=== PATIENT | female | born 1990 | race Caucasian/White ===

== ENCOUNTER 2017-04-27 14:17 | Emergency (ER) | payer MEDICAID, SELFPAY ==
[2017-04-27 14:18] VITALS: BP 157/91; PULSE 114; RESP 16; TEMP 36.6; O2SAT 99; BMI 41.3
--- NOTE | 2017-04-27 15:22 | ED.DCSUM_ITS ---
- ER Visit Summary Date of Service: 04/27/17 Chief Complaint: Nausea and vomiting History of Present Illness: The patient is a 26 F who presents with her daughter who has similar symptoms. The patient recently had a URI-like illness with congestion and cough. She was seen at an outside emergency department and diagnosed with an ear infection and is currently on azithromycin. She states she had nausea and one episode of nonbloody nonbilious emesis earlier today as well as some loose stools today. She has tolerated p.o. She states that she was able to eat rice crispy treats earlier and has had no further vomiting. She denies fever chest pain shortness of breath. She denies abdominal pain. Physical Examination: Heart rate 114 vitals otherwise unremarkable Moist mucous membranes Heart regular rhythm tachycardia Lungs are clear Abdomen soft nontender nondistended Alert Test Results: Not indicated Emergency Department Course and Treatment: She has a benign exam. She has no reproducible abdominal tenderness. She is well-appearing. She has tolerated p.o. Her daughter is ill with vomiting and diarrhea as well. I suspect this is related to a viral syndrome she was advised on oral rehydration and was given a Zofran ODT here. She was discharged. Treatment Plan: [] Disposition: Discharge Impression: Gastroenteritis This note was generated with Clinc! dictation software. It may contain incorrect words, spelling, and punctuation that were not noted in review of the chart prior to signing ED Disposition - Plan for ED Patient: Chief Complaint: Nausea/Vomiting/Diarrhea Referrals: Care Physician,No Primary [Primary Care Provider] -
--- NOTE | 2017-04-27 15:22 | ED.DEP ---
ED Disposition - Plan for ED Patient: Chief Complaint: Nausea/Vomiting/Diarrhea Instructions: ED Gastroenteritis Viral Referrals: Care Physician,No Primary [Primary Care Provider] -
[2017-04-27] MEDS: Ondansetron ODT 4 MG Tablet PO (15:23)
== END 2017-04-27 15:35 | disposition home or self-care (01) ==
PROVIDERS: Emergency Provider Emergency Medicine
DX: K52.9 Noninfective gastroenteritis and colitis, unspecified (principal); Z72.0 Tobacco use
CPT/HCPCS: 99283

== ENCOUNTER → 2017-06-07 11:47 | Outpatient (CLI) | payer MEDICAID, SELFPAY ==
[2017-06-07 12:17] LABS: Color, Urine Yellow (Yellow); Glucose, Dipstick Normal (Normal); Ketone-Dipstick 5 mg/dl (Negative); Leukocyte Esterase-Dipstick Negative /ul (Negative); Nitrite-Dipstick Negative (Negative); Occult Blood-Urine Negative /ul (Negative); Protein-Dipstick 15 mg/dl (Negative); Specific Gravity, Urine 1.025 (1.002-1.030); Urine Bilirubin Dipstick Negative (Negative); Urine Clarity Cloudy (Clear); Urine Urobilinogen 1 mg/dl (Normal)
[2017-06-07 12:36] LABS: Amphetamine Urine VISTA NEGATIVE (<1000 ng/mL); Barbiturate Urine VISTA NEGATIVE (< 200 ng/mL); Benzodiazepine Urine VISTA NEGATIVE (< 200 ng/mL); Cocaine Urine VISTA NEGATIVE (< 300 ng/mL); Ecstacy Urine VISTA NEGATIVE (< 500 ng/mL); Methadone Urine VISTA NEGATIVE (< 300 ng/mL); PCP Urine VISTA NEGATIVE (< 25 ng/mL); THC Urine VISTA POSITIVE (< 50 ng/mL); Vista UDS pH Range 5
[2017-06-07 13:00] LABS: Thyroid Stim Hormone (TSH) 0.82 uIU/mL (0.358-3.74)
[2017-06-07 13:01] LABS: Absolute Lymphocyte Count 2.01 X10^3/ul (0.83-4.51); Absolute Neutrophil Count 9.5 X10^3/uL (2.0-7.7); Basophil# 0.01 X10^3/uL; Basophil% 0.1 % (0-1); Eosinophils% 1.6 % (0-5); Hematocrit 27.3 % (37-47); Hemoglobin 8.4 g/dl (12.0-15.0); Lymphocyte # 2.01 X10^3/ul (4.0); Lymphocyte % 16.2 % (19-41); Mean Corp Hgb Conc 30.8 g/gl (32-36); Mean Corpuscular Hgb 22.1 pg (27.0-32.0); Mean Corpuscular Volume 71.8 fL (81-99); Monocyte# 0.63 X10^3/uL; Monocyte% 5.1 % (0-10); Neutrophil # 9.51 X10^3/uL (2.7-7.7); Neutrophil % 76.4 % (47-70); POSITIVE COUNT NO; POSITIVE DIFFERENTIAL NO; POSITIVE MORPHOLOGY YES; Platelet Count 110 K/mm3 (150-450); RBC Distribution Width CV 16.9 % (11.6-14.6); RBC Distribution Width SD 44.3 fl (35.1-43.9); White Blood Count 12.4 K/mm3 (4.4-11.0)
[2017-06-07 13:03] LABS: Differential Indicated SCAN CRITERIA MET
[2017-06-07 13:04] LABS: Platelet Estimate SLT DEC (ADEQ)
[2017-06-07 13:05] LABS: Hypochromasia 1+; Platelet Morphology GIANT
[2017-06-07 13:42] LABS: HIV - WCH Non-Reactive (Nonreactive); Rubella IgG 146.5 IU/mL
[2017-06-07 13:57] LABS: Group B Strep DNA By PCR Negative (Negative); Internal Control PASS; Probe Check PASS; Specimen Processing Control PASS
[2017-06-07 14:30] LABS: Chlamydia Trachomatis by PCR Negative (Negative); Neisserai gonorrhoeae by PCR Negative (Negative); Probe Check PASS; Sample Adequacy Control PASS; Specimen Processing Control PASS
[2017-06-09 11:38] LABS: HEPATITIS B SURFACE AG Negative (Negative); Hep C Antibodies <0.1 s/co ratio (0.0-0.9)
[2017-06-14 02:33] LABS: Prenatal RPR NONREACTIVE (NONREACTIVE)
== END ==
PROVIDERS: Visit Provider Obstetrics & Gynecology
DX: Z11.3 Encounter for screening for infections with a predominantly sexual mode of transmission (principal); Z34.82 Encounter for supervision of other normal pregnancy, second trimester
CPT/HCPCS: 36415; 80307; 81002; 84443; 85025; 86703; 86762; 86803; 87081; 87340; 87491; 87591; 87653

== ENCOUNTER → 2017-07-05 11:03 | Outpatient (CLI) | payer MEDICAID, SELFPAY ==
[2017-07-05 11:51] LABS: Amphetamine Urine VISTA NEGATIVE (<1000 ng/mL); Barbiturate Urine VISTA NEGATIVE (< 200 ng/mL); Benzodiazepine Urine VISTA NEGATIVE (< 200 ng/mL); Cocaine Urine VISTA NEGATIVE (< 300 ng/mL); Ecstacy Urine VISTA NEGATIVE (< 500 ng/mL); Methadone Urine VISTA NEGATIVE (< 300 ng/mL); PCP Urine VISTA NEGATIVE (< 25 ng/mL); THC Urine VISTA POSITIVE (< 50 ng/mL); Vista UDS pH Range 6
[2017-07-05 12:33] LABS: Group B Strep DNA By PCR Negative (Negative); Internal Control PASS; Probe Check PASS; Specimen Processing Control PASS
[2017-07-05 13:38] LABS: Glucose Challenge Gest 1H 50g 120 mg/dL (70-140)
[2017-07-05 14:18] LABS: Hematocrit 30.1 % (37-47); Hemoglobin 9.1 g/dl (12.0-15.0); Mean Corp Hgb Conc 30.2 g/gl (32-36); Mean Corpuscular Hgb 21.2 pg (27.0-32.0); Mean Corpuscular Volume 70.2 fL (81-99); Platelet Count 123 K/mm3 (150-450); RBC Distribution Width CV 17.6 % (11.6-14.6); RBC Distribution Width SD 44.9 fl (35.1-43.9); Red Blood Count 4.29 M/mm3 (4.2-5.4); White Blood Count 10.1 K/mm3 (4.4-11.0)
[2017-07-05 14:31] LABS: Scan Indicated on CBC? Y/N YES- FLAGS NOTED
== END ==
PROVIDERS: Visit Provider Obstetrics & Gynecology
DX: Z34.83 Encounter for supervision of other normal pregnancy, third trimester (principal); Z36.85 Encounter for antenatal screening for Streptococcus B
CPT/HCPCS: 36415; 80307; 82950; 85027; 87081; 87653

== ENCOUNTER 2017-07-08 10:00 | Inpatient (IN) | payer MEDICAID, SELFPAY ==
[2017-07-04 11:47] VITALS: BMI 40.8
[2017-07-08] VITALS (14 sets, daily range): BP systolic 115–146; BP diastolic 51–93; PULSE 80–88; RESP 16–18; TEMP 35.8–36.9; O2SAT 97–99; BMI 41.4
[2017-07-08] MEDS: Lactated Ringers 1,000 ML 999 ML IV (10:30)
[2017-07-08 11:01] LABS: International Normalized Ratio 0.9; Prothrombin Time (Protime)PT. 12.6 SECONDS (11.7-14.9)
[2017-07-08 11:02] LABS: Partial Thromboplast Time 27.5 Seconds (24.1-36.2)
[2017-07-08 11:15] LABS: Hematocrit 27.1 % (37-47); Hemoglobin 8.2 g/dl (12.0-15.0); Mean Corp Hgb Conc 30.3 g/gl (32-36); Mean Corpuscular Volume 69.5 fL (81-99); Platelet Count 129 K/mm3 (150-450); RBC Distribution Width CV 17.2 % (11.6-14.6); White Blood Count 11.2 K/mm3 (4.4-11.0)
[2017-07-08 11:16] LABS: Scan Indicated on CBC? Y/N YES- FLAGS NOTED
[2017-07-08] MEDS: Lactated Ringers 1,000 ML 150 ML IV (11:45)
[2017-07-08] MEDS: Sodium Citrate/Citric Acid 30 ML UDC PO (11:55)
[2017-07-08] MEDS: Oxytocin 30 units/NS 500 ml 30 UNITS/500 ML IV.SOLN 167 UNITS IV (12:47)
[2017-07-08] MEDS: Lactated Ringers 1,000 ML 100 ML IV (14:30)
--- NOTE | 2017-07-08 18:13 | OP.PCM_ITS ---
Operative Report Date of Procedure: 07/08/17 Surgeon: Berny Zambrano MD, FACOG Adjunct Instructor Of Women'S Studies: GLORY Renner Anesthesia: Guerda Paz CRNA Anesthesia: Spinal Pre-op Diagnosis: - -Prior Section, Desires Permanent Sterilization Post-Op Diagnosis: - -Prior Section, Desires Permanent Sterilization Procedure: Repeat Low Transverse Cervical Caesarean Section, Bilateral Tubal Occlusion with Filshie Clips Findings: Viable male with Apgars of 9/9 in occiput anterior presentation with clear amniotic fluid and normal three-vessel placenta. Indication: This is a 26-year-old who presents for her fourth at 39+ weeks gestation. care has otherwise been uneventful. The patient has been counseled regarding the risk and indications of this procedure including the possibility of bleeding infection and injury to surrounding structures such as bowel bladder. She also understands the permanent nature of her tubal, the failure rate of 1-2%, and the availability of other nonpermanent control options. All questions were answered. Procedure: Patient was taken to the operating room where after spinal anesthesia was placed, the patient was prepped and draped in usual sterile fashion and a See catheter was placed. The abdomen was entered through the patient's prior Pfannenstiel incision and peritoneum was entered bluntly. After developing a bladder flap on the lower uterine segment a low transverse incision was made on the uterus and head was easily delivered onto the operative field the nose mouth and oropharynx were bulb suctioned. Subsequently a viable male infant was born with Apgars of 9/9. The infant was noted to cry move all extremities vigorously on the operative field. The umbilical cord was doubly clamped and ligated and handed to the nursery personnel who were present for the delivery. Placenta was delivered and noted to be 3 vessels and normal. Uterus was exteriorized and remaining placental tissue was removed. The uterus was then closed in 2 layers first with running locked 0 Vicryl suture followed by a second imbricating layer with 0 Vicryl suture. 0 Vicryl suture was then used in a horizontal mattress interrupted fashion to affect final hemostasis of the uterine incision line. Normal fallopian tubes and ovaries were visualized and Filshie clips were placed approximately 1-2 cm from the uterine fundus on each fallopian tube. The uterus was returned to the pelvis. Hemostasis was noted and rectus abdominis muscles were reapproximated in the midline with interrupted Number 0 Vicryl suture in a horizontal mattress fashion. Fascia was closed with running Number 1 PDS Strata fix suture. Subcutaneous tissue was irrigated with copious amouts of saline solution and then closed with running 3-0 Vicryl suture. Skin was closed with 4-0 monocryl suture in a running subcuticular fashion. Steri strips , telfa, and tape were placed across the incision. The patient tolerated the procedure well and was taken to the recovery room in satisfactory condition. Sponge, needle, and instrument counts were all reportedly correct. EBL was less than 500 cc. Cefotan 2 gms IV was given prior to the procedure. Spicemen to Pathology: None Complications: None
--- NOTE | 2017-07-08 18:14 | DCINST_ITS ---
Discharge Diet: No Restrictions Discharge Activity: May not drive while taking narcotic pain medications., May Shower, May Take a Tub Bath May resume sexual activity in: 4-6 weeks Lifting Restrictions: 20 pounds Additional Activity Instructions:: Nothing in the vagina for 4-6 weeks. You may return to work/school in 6 weeks. Call your doctor if your incision/area has: Continuous Slow Oozing, Sudden Increased Bleeding, Increased Pain/ Swelling, Increased Redness, Foul Smelling Discharge Call your doctor if you observe: Fever of 101 or Higher, Inability to urinate, Inability to have a bowel movement, Using more than one pad per hour Additional Instructions: If you experience any of the following, contact your healthcare provider. * Bleeding that soaks a pad every hour for 2 hours * Unrelieved incision or abdominal pain * Swelling, redness, discharge or bleeding from your incision or episiotomy site * Your incision begins to separate * Problems urinating (including inability to urinate or burning while urinating) . * Visual changes * Severe headache * Flu-like symptoms * Pain or redness in one of both of your breasts * Pain, warmth, tenderness or swelling in your legs, especially the calf area * Frequent nausea and vomiting * Symptoms of depression or anxiety If you experience any of the following, call 911 or go to the nearest Emergency Room. * Chest pain * Problems breathing * Seizure activity * Partial or complete paralysis of a body part, slurred speech, weakness or drooping of the face, or a sudden inability to walk or hold your balance Allergies/Adverse Reactions: Allergies morphine Allergy (Verified 07/04/17 11:36) Hives Penicillins Allergy (Verified 07/04/17 11:36) Hives Medications to take at Discharge Vit Calc,Iron,Folic [ Vitamins] 1 each PO DAILY 07/04/17 Docusate Sodium [Colace] 100 mg PO BID PRN PRN #60 cap 07/08/17 Oxycodone [Oxyir] 5 mg PO Q6H PRN PRN 7 Days #14 tab 07/08/17 The following prescriptions were given: Oxycodone [Oxyir] 5 mg PO Q6H PRN PRN 7 Days #14 tab PRN Reason: Severe Pain (-12/18) Docusate Sodium [Colace] 100 mg PO BID PRN PRN #60 cap PRN Reason: Constipation Follow-Up: Call to make an appointment with your doctor for an incision check in 1-2 weeks. You will also need a 6 week post- follow up appointment. Please Follow Up With: Berny Zambrano MD - [phone] When: Call to make an appointment for an incision check in 2 weeks. Primary Care Physician: Care Physician,No Primary [Primary Care Provider] -
[2017-07-08] MEDS: Ketorolac 30 MG/ML Syringe IV (18:22)
[2017-07-08] MEDS: 0.9% Saline Lock 10 ML Syringe IV (18:23)
[2017-07-09] MEDS: Lactated Ringers 1,000 ML 100 ML IV (00:30)
[2017-07-09] MEDS: Ketorolac 30 MG/ML Syringe IV ×6 (00:33→23:53)
[2017-07-09 04:40] VITALS: BP 145/64; PULSE 78; RESP 18; TEMP 36.2
[2017-07-09 06:34] LABS: Hematocrit 23.4 % (37-47); Hemoglobin 7.1 g/dl (12.0-15.0); Mean Corp Hgb Conc 30.3 g/gl (32-36); Mean Corpuscular Hgb 21.1 pg (27.0-32.0); Mean Corpuscular Volume 69.6 fL (81-99); Platelet Count 121 K/mm3 (150-450); RBC Distribution Width CV 17.4 % (11.6-14.6); RBC Distribution Width SD 44.6 fl (35.1-43.9); Red Blood Count 3.36 M/mm3 (4.2-5.4); White Blood Count 13.3 K/mm3 (4.4-11.0)
[2017-07-09 06:49] LABS: Scan Indicated on CBC? Y/N YES- FLAGS NOTED
--- NOTE | 2017-07-09 07:07 | PCM.PN.OB ---
Subjective: Postoperative day #1 repeat Patient without complaints. Tolerating diet well. Denies any orthostatic changes. Positive flatus. - Physical Exam Vital Signs AF, VSS Temp Pulse Resp BP Pulse Ox 97.2 F L 78 18 145/64 H 98 07/09/17 04:40 07/09/17 04:40 07/09/17 04:40 07/09/17 04:40 07/08/17 23:50 Oxygen Delivery Method Room Air Weight: 264 lb 12.403 oz Body Mass Index (BMI) 41.4 Intake and Output for Last 24 Hours 07/07/17 07/08/17 07/09/17 23:59 23:59 23:59 Intake Total 2700 / 2700 2178 / 2178 Output Total 1450 / 1450 1600 / 1600 Balance 1250 / 1250 578 / 578 Laboratory Tests Past 24 Hrs 07/08/17 07/08/17 07/08/17 10:27 10:27 10:27 WBC 11.2 H RBC 3.90 L Hgb 8.2 L Hct 27.1 L MCV 69.5 L MCH 21.0 L MCHC 30.3 L RDW 17.2 H RDW Differential 44.0 H Plt Count 129 L Differential Comment COMMENT PT 12.6 INR 0.9 APTT 27.5 Blood Type O POSITIVE Antibody Screen NEGATIVE 07/09/17 06:03 WBC 13.3 H RBC 3.36 L Hgb 7.1 L Hct 23.4 L MCV 69.6 L MCH 21.1 L MCHC 30.3 L RDW 17.4 H RDW Differential 44.6 H Plt Count 121 L Differential Comment PT INR APTT Blood Type Antibody Screen Wound is clean, dry, intact. Good urine output. Hemoglobin stable. Medical Necessity - Tobacco Use Smoking Status: Current every day smoker Assessment/Plan Postoperative day #1 repeat Doing well. Continuing present care. Discussed need for taking iron at home.
[2017-07-09 07:23] LABS: Differential Comment SCANNED
[2017-07-09] MEDS: oxyCODONE 5 MG Tablet PO ×3 (09:44→21:27)
[2017-07-09 12:40] VITALS: BP 146/84; PULSE 96; RESP 18; TEMP 36.1; O2SAT 98
[2017-07-09] MEDS: 0.9% Saline Lock 10 ML Syringe IV ×3 (12:43→23:52)
[2017-07-09 13:21] VITALS: BP 144/63; PULSE 90; RESP 18; TEMP 36.3; O2SAT 99
--- NOTE | 2017-07-09 13:44 | CASEMGMT ---
Social Work Note Labor and Delivery Unit Verbal notification from nursing staff and from hash slinger regarding patient/mother of baby (MOB) having late care, as well as positive drug screens during . Chart reviewed and noted that baby's urine drug screen with positive results after delivery. Presented to MOB's room for social work consult/assessment. Nursing present in room, as well as a visitor just arriving to see MOB and baby. This information writer offered to come back tomorrow morning if this would be helpful. MOB cooperative and stated that whatever is better for this information writer, but that tomorrow morning only the father of baby (FOB) would be visiting, indicating that may be a better time to visit, though agreeable to whatever this information writer wishes to do. Due to nature of conversation, and in respect of visit that just started, this information writer made decision to follow up with MOB in the morning of 07-10-17. Plan: Will see MOB 07-10-17. MOB is aware and expressed agreement. -FLOR Neff, DEAN OF STUDENT SERVICES
[2017-07-09 15:49] VITALS: BP 156/78; PULSE 86; RESP 16; TEMP 36.3; O2SAT 96
--- NOTE | 2017-07-09 16:02 | NURSING ---
dominguez removed at 10:30
[2017-07-09 20:45] VITALS: BP 136/78; PULSE 94; RESP 18; TEMP 36.4; O2SAT 99
[2017-07-10 02:32] VITALS: BP 140/73; PULSE 89; RESP 16; TEMP 36.5; O2SAT 98
[2017-07-10] MEDS: Acetaminophen 500 MG Tablet 1000 MG PO (05:33)
[2017-07-10 07:35] VITALS: BP 135/80; PULSE 90; RESP 18; TEMP 35.9; O2SAT 98
--- NOTE | 2017-07-10 08:24 | PCM.PN.OB ---
Subjective: Patient without complaints. Positive flatus. Wants to go home but baby needs to stay for another day. - Physical Exam Vital Signs Temp Pulse Resp BP Pulse Ox 96.7 F L 90 18 135/80 H 98 07/10/17 07:35 07/10/17 07:35 07/10/17 07:35 07/10/17 07:35 07/10/17 07:35 Oxygen Delivery Method Room Air Weight: 264 lb 12.403 oz Body Mass Index (BMI) 41.4 Intake and Output for Last 24 Hours 07/08/17 07/09/17 07/10/17 23:59 23:59 23:59 Intake Total 2700 / 2700 2178 / 2178 Output Total 1450 / 1450 2900 / 2900 Balance 1250 / 1250 -722 / -722 Medical Necessity - Tobacco Use Smoking Status: Current every day smoker Assessment/Plan Postoperative day #2 repeat . Doing well. Continuing present care.
--- NOTE | 2017-07-10 10:00 | CASEMGMT ---
Social Work Note Labor and Delivery Unit Social Work Assessment completed. Refer to documentation below for further details. Date of Referral: 07/08/2017 Time of Referral: 1200 Referred By: verbal notification from nursing staff Date of Intervention: 07/10/2017 Time of Intervention: 1000 Reason for Referral: maternal substance use, late care History obtained from: Medical record and mother of baby (MOB) Household composition: MOB reports to live with father of baby (FOB) Maksim Lynne, in an apartment since 05-09-17. MOB reports MOBs older children also live in the home, and plans to take baby to this home. MOB reports prior to the apartment, lived with MOBs father and stepmother. Patient's parent/guardian status: MOB reports has been with FOB for 4 years. MOB denies any form of abuse in relationship with FOB. MOB and FOB now share 2 children together. Minor children include: Fransisco Ramos, born (the father visits with Fransisco intermittently), Adalid Foster born 01/2016 (the father is not involved, and current FOB is reportedly planning to adopt Adalid), Antoine Guera born 04-12-16, and Silvano Lynne born 07[birth year] Medical History: MOB is G4, P3 to 4 after delivering Silvano. MOB with late care starting at 34 weeks gestation. MOB did have an ER visit in February 2017 with ultrasound. MOBs first visit with OBGYN was 06-07-17 and then next appointment 07/05/2017. born via repeat caesarian section, weighing 8 pounds 2 ounces, Apgars 9 and 9 at 1 and 5 minutes of life. Baby receiving NYDIA scoring due to positive drug screen prenatally in the 3rd trimester for opiates. Scores low so far, highest is a 4. Educational Status: MOB reports completed through the 11th grade, dropping out in the 12th grade. MOB reports to be able to read and write, no issues with learning comprehension. MOB reports completion of school was complicated by MOB having her first child. Financial Status: Sole income for the home is FOB who works as a welder oxyhydrogen at [employer]. Infant Supplies: MBO reports to have a car seat, swing, bassinet that turns to a pack-n-play, clothing, diapers, wipes, bottles, and plans to get a breast pump. Childcare/Caregiver(s): MOB Transportation: MOB reports to have a drivers license and a car, but that sometimes transportation is an issue. MOB reports MOBs mother and father both pitch in to help when needed. Programs/Agencies Involved: JFS for Medicaid, plans to apply for food assistance. Reports plan to apply for WIC. Children Services/Legal Issues: MOB reports recent [facility] ([facility]) case, as recent as during this . MOB reports allegations were called in that MOB was using drugs, due to MOB having sores on MOBs face. MOB reports was also living at [facility] for a short time, trying to expedite getting some housing assistance for own apartment. MOB reports the case has been closed, and reports this is the only instance that [facility] has been involved. Behavioral Health Issues: MENTAL HEALTH: MOB denies any depression, anxiety, or mental health issue but does endorse the last 6 months have been rough. When asked about specific symptoms of depression, anxiety, and psychosis the MOB denies symptomatology. MOB denies any current or past thoughts, plans, or intent for suicide or homicide. MOB denies depression at this time. SUBSTANCE USE HISTORY: MOB reports past history of drug use, around the time Fransisco was born until [place]. MOB reports had issues with Cocaine and did use meth. MOB reports this type of use is all in the past. MOB does endorse marijuana usage in April of 2017, after finding out some difficult new regarding a family members . MOB reports had also stopped smoking cigarettes, but picked this back up in April as well. MOB denies any alcohol usage in , denies heroin, cocaine, methamphetamine, or other illicit drug use including narcotic prescription use. MOB reports did use some opioids during this that were prescribed to MOB for dental pain. MOB initially reporting prescription of hydrocodone from Dr. Locke, a dentist in [place]. Talked with MOB about ED visit in February (for abdominal pain), where MOB was given prescription for pain medication. MOB reports maybe that is what MOB is thinking of, that was given Vicodin in February. MOB reports last use of prescribed pain medication was a week before first OBGYN visit in May. TOXICOLOGY SCREENS: Maternal screen on 06-07-17 for marijuana and opiates, 07-05-17 for marijuana. Infant screen, positive for marijuana in the third urine and meconium is pending. Family/Social Stressors: Housing changes, living with MOBs parents for years, then moving to [facility] to help expedite community housing assistance, then moving back to parental home due to not wanting to put kids through living in a homeless usp. MOB reports lived separately from FOB for a short time, as FOB was not allowed to move back in with MOB's parents until had a job. MOB with late and limited care starting at 34 weeks, MOB reports was due to MOB losing insurance due to FOB making too much money. MOB also reports that missed a couple of appointments after getting insurance as felt too tired to go out to an appointment. MOB reports children services case this , which MOB reports ended up being helpful. MOB reports in April, MOBs 19 year old nephew in a drunk driving accident (dying in the same manner that the nephews father 18 years ago). MOB reports had to relocate to [facility] for a couple of weeks to sort out the nephews personal items. MOB reports used marijuana and cigarettes in April due to stress and loss. Support Systems: MOB reports FOB is supportive and helpful. MOB reports MOBs parents are also helpful with practical needs. Depression/Shaken Baby/Safe Sleeping: MOB able to give appropriate responses to topics of shaken baby and safe sleeping. MOB denies any past history of depression. MOB reports to feel a connection to baby. MOB listened to education regarding mood and anxiety disorders, risks present, and importance of seeking help and support if needed. ASSESSMENT: MOB pleasant and cooperative during social work visit. MOB held normal eye contact with this health underwriter. Answers expansive and circumstantial at times, giving specific details before wrapping around to answering question. Expansive answers when MOB wanting to discuss choices and actions this , as MOB expressing concern that people are passing judgment on MOB, such as for the sores on MOB's face, which to this writers eye are clearly visible. For instance, MOB reports allegations made that MOB was using drugs this , due to sores on face, when MOB reports the thought that MOB contracted impetigo a few months ago from MOBs son. MOB reports did not get self treatment, but did get son treatment. MOB reports was trying to manage the sores on own, and then started having stress so reports belief the sores have continued due to stress. MOB accepted social work education on need to make referral to WC at this time, as baby was positive for drugs at delivery. MOB reports to be suprised the baby is positive as last use of said substances reportedly in April. MOB reports to understand though the need to call [facility]. MOB reports talking to transition social worker has helped and MOB feels less anxious after being able to talk to this health underwriter. MOB reports intent to abstain from illicit drug use and did listen to social work education that marijuana can potentially be passed through breast milk, so important to abstain from this substance, especially if planning to breast feed. MOB reports does not want to harm baby, to love children, and to regret choice to even smoke marijuana in the first place. MOB does maintain that has not abused other illicit substances this , and maintains that did not abuse any narcotic prescriptions, that use was limited during the to the prescription given in January or February. MOB also maintains that last use of marijuana was in April 2017, despite repeated positive drug screens for such and baby being positive. MOB reports to have needed baby supplies, and will have help from family at home going. No observed parent/child interactions at this time. Baby sleeping in bedside crib during social work visit. PLAN: Social work to follow, will plan to see MOB again on 07-11-17 to provide resources, as well as plans to make referral to WC. -MARKOS Neff, WEB DESIGNER DEVELOPER
[2017-07-10] MEDS: Ibuprofen 600 MG Tablet PO ×2 (10:16→20:54)
--- NOTE | 2017-07-10 11:30 | CASEMGMT ---
Social Work Labor and Delivery Unit Referral to [facility] ([facility]), , speaking to June at extension [phone]. Referral given due to baby positive for marijuana at , reported to June the repeated 3rd trimester drug screens positive for drugs, MOB seeking late care, maternal stress this , and recent [facility] case closing in the last couple of months. [facility] will be opening case for investigation, making contact with family at home, unless immediate concerns arise that would warrant a visit to the hospital. Plan: Social work to follow, will plan to see MOB again on 07-11-17 to provide resources. [facility] will be following in the community. -FLOR Neff, TECHNICAL INSPECTOR
[2017-07-10] MEDS: Senna/Docusate Sodium 1 Tablet PO (13:26)
[2017-07-10 13:28] VITALS: BP 147/90; PULSE 98; RESP 18; TEMP 36.2; O2SAT 99
[2017-07-10] MEDS: oxyCODONE 5 MG Tablet PO (16:50)
[2017-07-10] MEDS: Mupirocin Ointment 22gm Tube 1 APPLIC TOPICAL (18:16)
[2017-07-10 20:40] VITALS: BP 142/83; PULSE 87; RESP 18; TEMP 36; O2SAT 99
[2017-07-11 01:40] VITALS: BP 143/82; PULSE 82; RESP 17; TEMP 36.3; O2SAT 99
[2017-07-11] MEDS: Ibuprofen 600 MG Tablet PO (05:06)
[2017-07-11] MEDS: Mupirocin Ointment 22gm Tube 1 APPLIC TOPICAL ×2 (05:07→13:22)
[2017-07-11] MEDS: Acetaminophen 500 MG Tablet 1000 MG PO (07:34)
--- NOTE | 2017-07-11 08:17 | PCM.PN.OB ---
Subjective: No complaints. Pain reasonbly controlled with PO medications. Objective: Afeb VSS - Physical Exam General: Alert, Oriented x3, Cooperative, No apparent distress Lungs: Clear to auscultation, Normal air movement Cardiovascular: Regular rate, Regular Rhythm Abdomen: Soft, Non Tender, Non-Distended, - - Incision healing well. No erythema Extremities: No edema, No Calf Tenderness Skin: No rashes Neurological: Neuro grossly intact Psych/Mental Status: Normal Affect Comment: Lochia light Vital Signs Temp Pulse Resp BP Pulse Ox 97.3 F L 82 17 143/82 H 99 07/11/17 01:40 07/11/17 01:40 07/11/17 01:40 07/11/17 01:40 07/11/17 01:40 Oxygen Delivery Method Room Air Weight: 264 lb 12.403 oz Body Mass Index (BMI) 41.4 Intake and Output for Last 24 Hours 07/09/17 07/10/17 07/11/17 23:59 23:59 23:59 Intake Total 2178 / 2178 Output Total 2900 / 2900 Balance -722 / -722 Medical Necessity - Tobacco Use Smoking Status: Current every day smoker Assessment/Plan Doing well. Cleared for discharge home today. Home going instructions and warnings given.
--- NOTE | 2017-07-11 08:21 | PCM.DC.SUM ---
Discharge Date and Diagnosis Date of Admission: 07/08/17 Date of Discharge: 07/11/17 - Primary Discharge Diagnosis repeat c/s - Secondary Discharge Diagnosis Chronic Problems Previous delivery affecting , delivered (Chronic) Hospital Course and Treatment Consultations 07/08/17 10:21 Consult: Anesthesia Routine Comment: Reason For Exam: R c/s 07/08/17 10:41 Consult: Mental Health/Crisis Routine Reason for consult?: late care; pos tox screen for THC. Date Notified:: 07/08/17 Time notified:: 10:42 Operations: - - Repeat C section Summary of Care Provided: The patient is a 26 year old F [admitted for repeat C/S. Uncomplicated. Post op anemia present. Discharged home on POD#3. Discharge Diet: No Restrictions Discharge Activity: May not drive while taking narcotic pain medications., May Shower, May Take a Tub Bath May resume sexual activity in: 4-6 weeks Additional Activity Instructions:: Nothing in the vagina for 4-6 weeks. You may return to work/school in 6 weeks. Call your doctor if your incision/area has: Continuous Slow Oozing, Sudden Increased Bleeding, Increased Pain/ Swelling, Increased Redness, Foul Smelling Discharge Call your doctor if you observe: Fever of 101 or Higher, Inability to urinate, Inability to have a bowel movement, Using more than one pad per hour Home Medications: Medications to take at Discharge Vit Calc,Iron,Folic [ Vitamins] 1 each PO DAILY 07/04/17 Docusate Sodium [Colace] 100 mg PO BID PRN PRN #60 cap 07/08/17 Oxycodone [Oxyir] 5 mg PO Q6H PRN PRN 7 Days #14 tab 07/08/17 Ferrous Gluconate 325 mg PO BIDCM #60 tab 07/11/17 Ibuprofen [Motrin] 800 mg PO TID PRN PRN #30 tab 07/11/17 Following Prescrptions Were Given to Patient: Oxycodone [Oxyir] 5 mg PO Q6H PRN PRN 7 Days #14 tab PRN Reason: Severe Pain (6-10/10) Docusate Sodium [Colace] 100 mg PO BID PRN PRN #60 cap PRN Reason: Constipation Ibuprofen [Motrin] 800 mg PO TID PRN PRN #30 tab PRN Reason: pain or cramping Ferrous Gluconate 325 mg PO BIDCM #60 tab Primary Care Physician: Care Physician,No Primary [Primary Care Provider] - Please Follow Up With: Berny Zambrano MD - [phone] When: Call to make an appointment for an incision check in 2 weeks. Disposition: Home Minutes spent on discharge:: 15 Patient Condition:: Good Medical Necessity - Tobacco Use Smoking Status: Current every day smoker Meaningful Use Info Meaningful Use Diagnoses (Choose all that apply): None applicable
[2017-07-11 08:58] VITALS: BP 155/50; PULSE 96; RESP 16; TEMP 36.1; O2SAT 99
--- NOTE | 2017-07-11 09:34 | NURSING ---
updated on pt's blood pressures and bp's during this stay, he gave an order for labetalol 200mg po now and he states he will send that to her pharmacy on record [facility]
[2017-07-11] MEDS: Labetalol 200 MG Tablet PO (10:02)
[2017-07-11 12:00] VITALS: BP 145/73; PULSE 98; RESP 16; TEMP 36.6; O2SAT 99
[2017-07-11] MEDS: oxyCODONE 5 MG Tablet PO (13:29)
[2017-07-11 13:49] VITALS: BP 145/73; PULSE 98; RESP 16; TEMP 36.6; O2SAT 99
== END 2017-07-11 14:00 | disposition home or self-care (01) | DRG 370 ==
PROVIDERS: Admitting Provider Obstetrics & Gynecology; Visit Provider Obstetrics & Gynecology
PROC: 10D00Z1 Extraction of Products of Conception, Low, Open Approach (ICD-10-PCS; CPT 59514; principal; 2017-07-08 11:45)
DX: O34.211 Maternal care for low transverse scar from previous cesarean delivery (principal); O99.02 Anemia complicating childbirth; D50.9 Iron deficiency anemia, unspecified; O99.333 Smoking (tobacco) complicating pregnancy, third trimester; Z3A.39 39 weeks gestation of pregnancy; Z37.0 Single live birth; Z30.2 Encounter for sterilization
CPT/HCPCS: 36415; 80307; 82950; 85027; 85610; 85730; 86850; 86900; 87081; 87653; 94762; 99218; J7120; A4216; G0378; J2405

== ENCOUNTER 2018-11-10 15:28 | Emergency (ER) | payer MEDICAID, SELFPAY ==
[2018-11-10 15:29] VITALS: BP 158/86; PULSE 103; RESP 18; TEMP 35.4; O2SAT 99; BMI 34.2
--- NOTE | 2018-11-10 15:43 | ED.DCSUM_ITS ---
History of Present Illness Chief Complaint: Ear Problem Detail of Chief Complaint: Right ear pain and bilateral ears are muffled Informant: Patient Onset: Weeks - 1 week Current Severity: Moderate Maximum Severity: Moderate Narrative: Patient reports left ear pain for the past 1 week that seems to be improving. She then developed right ear pain is continuing to worsen. She states with cert ain movements she gets sharp pain through her ear. She feels like both ears are muffled. She denies recent URI symptoms. She is not diabetic. Past Medical History - Allergies and Home Meds Allergies/Adverse Reactions: Allergies morphine Allergy (Verified 11/10/18 15:31) Hives Penicillins Allergy (Verified 11/10/18 15:31) Hives Primary Care Physician: Care Physician,No Primary [Primary Care Provider] - Prior records reviewed: Yes Past Medical History: - - Reviewed Lives: With Family Smoking Status: Current every day smoker Review of Systems General: Denies: Chills, Fever Eyes: Denies: Visual changes - bilaterally ENT: Reports: Bilateral ear pain. Denies: Sore throat Cardiovascular: Denies: Chest pain Respiratory: Denies: Dyspnea, Cough Gastrointestinal: Denies: Abdominal pain Musculoskeletal: Denies: Neck pain Skin: Denies: Wounds Neurological: Denies: Headache Physical Exam Vital Signs/Narrative: Vital Signs Temp Pulse Resp BP Pulse Ox 11/10/18 15:29 95.7 F L 103 H 18 158/86 H 99 Inital Vital Signs reviewed: Yes General: Well nourished, Well developed Eyes: - - Bilateral outer canals are edematous with mild white discharge consistent with otitis externa. ENT: Moist mucous membranes Neck: Supple Cardiovascular: Regular rate, Regular rhythm Respiratory: No distress, CTA bilaterally Abdomen: Soft, Nontender Extremities: Nontender Skin: Normal color Neurological: Alert, Oriented x3 Psychological: Normal affect Diagnostic/Tx/Re-eval - Medical Decision Making Patient will be given neomycin/polymyxin/hydrocortisone drops. She is referred to Dr. Olivares if not improving. ED Disposition - Plan for ED Patient: Disposition: Home or Assisted Living Diagnosis: Otitis externa Instructions: EXTERNAL EAR INFECTION (Adult) Referrals: Ran Olivares MD [STAFF PHYSICIAN] - 3-5 Days if not improving Additional Instructions: EAR DROPS - 5 drops to each ear 4x daily for 7 days
[2018-11-10] MEDS: Neomycin Sulfate/Polymyxin/Hc Susp 10 ML Bottle 5 DRP OTIC (16:07)
== END 2018-11-10 16:08 | disposition home or self-care (01) ==
PROVIDERS: Emergency Provider Emergency Medicine
DX: H60.93 Unspecified otitis externa, bilateral (principal); F17.200 Nicotine dependence, unspecified, uncomplicated; Z88.0 Allergy status to penicillin
CPT/HCPCS: 99282

== ENCOUNTER 2019-05-19 14:09 | Emergency (ER) | payer MEDICAID, SELFPAY ==
[2019-05-19 14:10] VITALS: BP 133/70; PULSE 104; RESP 18; TEMP 36.5; O2SAT 99; BMI 36.5
--- NOTE | 2019-05-19 15:36 | ED.VIS.URI ---
History of Present Illness Chief Complaint: Ear Problem Informant: Patient Onset: Days Context: Gradual Onset Timing: Continuous Associated Symptoms: Nasal Congestion, Sinus Pressure, Nausea, Nonproductive cough. Negative for: Vomiting, Diarrhea, Shortness of Breath Narrative: Patient is a 28-year-old female with no significant past medical history presenting with sinus congestion and right ear pain. She states she has had cold for the past week and a half that is been going on her family. For the past 3 days she is at increased pressure and fullness in her right ear as well as her sinuses. She states she feels that her ear needs to pop but cannot. She feels that she has decreased hearing because of this. She denies any ringing of her ear. She has any fever or chills. She denies any vomiting or abdominal pain but has had some nausea. She states she is a smoker but she has been cutting back over the past week. She denies any other complaints or concerns at this time. Past Medical History - Allergies and Home Meds Allergies/Adverse Reactions: Allergies morphine Allergy (Verified 05/19/19 14:10) Hives Penicillins Allergy (Verified 05/19/19 14:10) Hives Primary Care Physician: Care Physician,No Primary [Primary Care Provider] - Past Medical History: None Surgical History: noncontributory, - - x4 Lives: With Family Smoking Status: Current every day smoker Review of Systems General: Denies: Chills, Fever, Sweats Eyes: Denies: Visual changes - bilaterally, Diplopia ENT: Reports: Right ear pain, - - Nasal congestion. Denies: Rhinorrhea, Sore throat Cardiovascular: Denies: Chest pain, Palpitations Respiratory: Reports: Cough. Denies: Dyspnea, Dyspnea on exertion Gastrointestinal: Reports: Nausea. Denies: Abdominal pain, Vomiting, Diarrhea, Melena, Hematochezia Genitourinary: Denies: Dysuria, Hematuria, Frequency Musculoskeletal: Denies: Back pain, Extremity Pain Skin: Denies: Rash, Wounds Neurological: Denies: Headache, Weakness, Numbness Physical Exam Vital Signs/Narrative: Vital Signs Temp Pulse Resp BP Pulse Ox 05/19/19 14:10 97.7 F L 104 H 18 133/70 H 99 Inital Vital Signs reviewed: Yes General: Well nourished, Well developed Head: Normocephalic, Atraumatic Eyes: Perrl, EOMI Ears: Normal external canal, TM's clear. Negative for: Pain with Movement of Right Tragus, Right Mastoid Tenderness Nose: No Rhinorrhea, Swollen Turbinates, Congestion. Negative for: Erythema Mouth/Throat: Normal Inspection, No Posterior Erythema, Airway Patent. Negative for: Dry Mucous Membranes, Posterior Oropharyngeal Erythema Neck: Supple, Nontender Cardiovascular: Regular rate, Regular rhythm, No murmurs Respiratory: No distress, CTA bilaterally, Chest nontender Extremities: Nontender, No edema Skin: Normal color, No rash Neurological: Alert, Oriented x3, Cranial nerves II-XII grossly intact, Normal Strength, Normal Sensation Psychological: Normal affect Diagnostic/Tx/Re-eval - Medical Decision Making Patient is evaluated for right ear pain. It seems to be associated with congestion. On physical exam she does not have signs of otitis media or otitis externa. Patient be started on decongestants, fluticasone and a Medrol Dosepak. She is counseled this is likely viral and does not require antibiotics at this time. She does not appear dehydrated and the remainder of her exam is benign. Her lungs are clear and I do not think she requires a chest x-ray for her cough. Patient is counseled on signs and symptoms requiring return to the emergency room. Patient verbalizes agreement and understand this plan. Patient discharged home in stable and improved condition. ED Disposition - Plan for ED Patient: Disposition: Home or Assisted Living Diagnosis: Otalgia, right ear, Sinus congestion Instructions: EARACHE w/o Infection (Adult) Prescriptions: Pseudoephed/Acetaminophen/Cpm [Allergy Sinus-D Caplet] 1 ea PO BID PRN #20 tab PRN Reason: Congestion Transmission Status: Pending to [facility] Fluticasone Propionate [Flonase Allergy Relief] 9.9 ml NS DAILY 14 Days #1 spray.susp Transmission Status: Pending to [facility] MethylPREDNISolone DosePak [Medrol DosePak] 4 mg PO UD #1 box Transmission Status: Pending to [facility] Referrals: Iman Hansen MD [STAFF PHYSICIAN] -
[2019-05-19 16:00] VITALS: RESP 16
== END 2019-05-19 16:06 | disposition home or self-care (01) ==
LOC: ED 15:50
PROVIDERS: Emergency Provider Emergency Medicine
DX: H92.01 Otalgia, right ear (principal); R09.81 Nasal congestion; Z88.0 Allergy status to penicillin; F17.200 Nicotine dependence, unspecified, uncomplicated; Z88.5 Allergy status to narcotic agent
CPT/HCPCS: 99282